=== PATIENT | female | born 1985 | race African-American/Black ===

== ENCOUNTER 2020-01-13 22:00 | Emergency (ER) | payer MEDICARE, MEDICAID ==
[~2020-01-13] VITALS: Ht 157.5 cm; Wt 91.0 kg
[2020-01-13 23:42] VITALS: BP 122/76
== END 2020-01-13 23:43 | disposition home or self-care (01) ==
LOC: ER 22:00
DX: T78.1XXA Other adverse food reactions, not elsewhere classified, initial encounter (principal); X58.XXXA Exposure to other specified factors, initial encounter; Z91.010 Allergy to peanuts
CPT/HCPCS: 93005; 99283